=== PATIENT | male | born 1990 | race Two or more races ===

== ENCOUNTER 2017-02-28 05:29 | Emergency (ER) | payer BC ==
[~2017-02-28] VITALS: Ht 182.9 cm; Wt 100.0 kg
[2017-02-28 05:57] VITALS: BP 153/102
== END 2017-02-28 08:48 | disposition left against medical advice (07) ==
LOC: ER 06:10
DX: M79.672 Pain in left foot (principal); M79.671 Pain in right foot; Z53.21 Procedure and treatment not carried out due to patient leaving prior to being seen by health care provider

== ENCOUNTER 2017-05-25 09:04 | Emergency (ER) | payer BC ==
[~2017-05-25] VITALS: Ht 182.9 cm; Wt 98.0 kg
[2017-05-25 09:25] VITALS: BP 134/83
[2017-05-25] MEDS ORDERED: IBUPROFEN 600MG TABLET PO ONE (10:15)
== END 2017-05-25 11:32 | disposition left against medical advice (07) ==
LOC: ER 09:04
DX: M79.672 Pain in left foot (principal); M79.671 Pain in right foot; Z59.0 Homelessness
CPT/HCPCS: 99281